=== PATIENT | male | born 2000 | race Caucasian/White ===

== ENCOUNTER 2024-08-02 23:35 | Emergency (ER) | payer BC, SELFPAY ==
[2024-08-02 23:40] VITALS: BP 148/92
[2024-08-03] MEDS: NSS 1000 IV (00:30)
[2024-08-03 00:36] LABS: % Basophils 0.5 % (0-2); % Eosinophils 0.8 % (0-6); % Immature Granulocytes 0.7 % (0-0.5); % Lymphocytes 30.4 % (20.5-51.1); % Monocytes 6.3 % (1.7-9.3); % Neutrophils 61.3 % (42.2-75.2); Absolute Basophils 0.1 10^3/uL (0-0.2); Absolute Eosinophils 0.1 10^3/uL (0-0.7); Absolute Immature Granulocytes 0.1 10^3/uL (0-0.05); Absolute Lymphocytes 3.6 10^3/uL (1.2-3.4); Absolute Monocytes 0.8 10^3/uL (0.1-0.6); Absolute Neutrophils 7.3 10^3/uL (1.4-6.5); Hematocrit 39.7 % (39.0-52.0); Mean Corp Hgb Conc. 35.3 g/dL (33.0-37.0); Mean Corpuscular Hgb 27.9 pg (27.0-31.0); Mean Corpuscular Volume 79.1 fL (80.0-94.0); Mean Platelet Volume 8.9 fL (7.4-10.4); Nucleated Red Blood Cells % 0 % (-); Platelet Count 310 10^3/uL (130-400); Red Blood Cell Count 5.02 10^6/uL (4.70-6.10); Red Cell Dist. Width 11.9 % (11.5-14.5); White Blood Cell Count 11.9 10^3/uL (4.8-10.8)
[2024-08-03 00:49] LABS: ALT (SGPT) 42 U/L (0-50); AST (SGOT) 29 U/L (17-59); Albumin 4.6 g/dl (3.5-5.0); Alkaline Phosphatase 86 U/L (38-126); Blood Urea Nitrogen 15 mg/dl (9-20); Calcium 9.3 mg/dl (8.4-10.2); Carbon Dioxide 24 mmol/L (22-30); Chloride 103 mmol/L (98-107); D-Dimer 0.32 ug/mlFEU (0.00-0.50); Glucose 148 mg/dl (70-99); Magnesium 1.8 mg/dl (1.6-2.3); Potassium 3.1 mmol/L (3.5-5.1); Sodium 143 mmol/L (135-145); Total Bilirubin 0.3 mg/dl (0.2-1.3); Total Protein 7.4 g/dl (6.3-8.2); eGFR > 60.00
[2024-08-03 01:00] VITALS: BP 139/85
[2024-08-03 01:01] LABS: Troponin I < 0.012 ng/ml
[2024-08-03 02:18] VITALS: BP 113/69
[2024-08-03 03:00] VITALS: BP 116/72
[2024-08-03 04:00] VITALS: BP 123/88
--- NOTE | 2024-08-03 04:31 | ED.GENMED ---
History of Present Illness
General
Chief Complaint: Chest Problem
Source: patient
Exam Limitations: none
Time Seen by Provider: 08/02/24 23:54
History of Present Illness
History of Present Illness:
24-year-old male who presents with feeling chest tightness like his heart is racing. He just finished the course of treatment for pneumonia. Patient does have history of mild asthma. Patient states he has had no further fevers and his cough is
improved. No hemoptysis. No leg pain or swelling.
Past History
Past History
ED Past Medical History: Asthma
ED Past Surgical History: Orthopedic
Phy Exam
Physical Exam
Physical Exam:
CONSTITUTIONAL Patient alert and oriented to person, place and time. Well-appearing. Vital signs reviewed.
HEAD atraumatic, normocephalic.
EYES eyelids normal to inspection, Pupils equally round and reactive to light, Extraocular muscles intact, Conjunctiva normal, Sclera normal.
NECK normal range of motion, Trachea midline, no jugular venous distention.
RESPIRATORY CHEST No respiratory distress noted, Chest expansion equal, Bilateral breath sounds clear.
CARDIOVASCULAR regular and tachycardic.
ABDOMEN abdomen nontender, Bowel sounds normal. No distention.
BACK normal inspection, no obvious deformities
UPPER EXTREMITY range of motion normal, Motor strength normal, no cyanosis, no edema.
LOWER EXTREMITY range of motion normal, Motor strength normal, no cyanosis, no edema.
NEURO Speech normal, No focal motor deficits, Elier coma scale 15, Memory normal, Cranial Nerves intact to screening exam.
SKIN skin warm, dry, and normal in color.
Course
Orders/Labs/Results
Orders:
Orders
08/02/24 23:38
ECG [Electrocardiogram (*1)] Urgent
Reason for Study: Chest Pain
Cardiology Consult: Unknown
EKG- Treatment ONCE
08/03/24 00:18
ECG [Electrocardiogram (*1)] Urgent
Reason for Study: Tachycardia
EKG- Treatment ONCE
08/03/24 00:21
0.9% Sodium Chloride 1000 ml [Nss] 1,000 ml IV BOLUS
08/03/24 00:28
Complete Blood Count/With Diff Urgent
Comprehensive Metabolic Panel Urgent
D-Dimer Urgent
Magnesium Urgent
Troponin I Urgent
08/03/24 01:41
CR Chest - 2 Views Urgent
Comment:
Reason For Exam: chest pain
08/03/24 04:09
Electrocardiogram (*1) Urgent
Reason for Study: Palpitations
EKG- Treatment ONCE
Abnormal Lab Results
08/03/24
00:28
WBC 11.9 H 10^3/uL
(4.8-10.8)
MCV 79.1 L fL
(80.0-94.0)
Abs Immat Gran (auto) 0.1 H 10^3/uL
(0-0.05)
Absolute Neuts (auto) 7.3 H 10^3/uL
(1.4-6.5)
Absolute Lymphs (auto) 3.6 H 10^3/uL
(1.2-3.4)
Absolute Monos (auto) 0.8 H 10^3/uL
(0.1-0.6)
Immature Gran % 0.7 H %
(0-0.5)
Potassium 3.1 L mmol/L
(3.5-5.1)
Glucose 148 H mg/dl
(70-99)
08/03/24 00:28
08/03/24 00:28
Vital Signs
Initial and Last Documented VS:
Initial Vital Signs
Temp Pulse Resp BP Pulse Ox
98.5 F 110 24 148/92 97
08/02/24 23:40 08/02/24 23:40 08/02/24 23:40 08/02/24 23:40 08/02/24 23:40
Last Documented Vital Signs
Temp Pulse Resp BP Pulse Ox
98.5 F 101 24 123/88 96
08/02/24 23:40 08/03/24 04:15 08/03/24 04:15 08/03/24 04:00 08/03/24 04:15
MDM/Problems Addressed
MDM/Problems Addressed:
Atrial tachycardia, hypokalemia
*Radiology
Radiology exam reviewed: preliminary read by ED provider and all reviewed NAD by ED Provider
*Pulse Oximetry
Patient hypoxic: no
*EKG
Interpreted by ED Provider?: Yes
Interpretation: abnormal
Rate: tachycardiac
Rhythm: sinus
Ischemia: non-specific ST changes
*Early Breastfeeding Care Specialist Interpretation
Rate: tachycardiac
Interpretation: abnormal
Rhythm: sinus
*Critical Care Note
Total Time (30-74mins, 75-104mins- exclusive of procedures): Not Applicable
Data Reviewed
Source: patient and significant other
Prescriptions/Medications Considered But Not Given:
Consider AV blockers but heart rate much improved
Patient Management
Escalation/DeEscalation of care consider admission/obs:
24-year-old male chest tightness his heart racing. Do not suspect ischemia but patient's heart rate did jump into the 140s. I do suspect he has an atrial tachycardia as it did resolve relatively quickly without major intervention. May need
outpatient follow-up with cardiology and Holter monitor. Patient is a rate was very high as of pneumonia. Replace potassium. Okay for discharge. D-dimer negative.
ED Attending Note
-
Portions of this chart may have been created with voice recognition software.� Occasional wrong word or��sound alike� substitutions may have occurred due to the inherent limitations of voice recognition software.
Discharge Plan
Departure
Patient Disposition: Home (Routine Discharge)
Date of Disposition: 08/03/24
Time of Disposition: 04:36
Patient with high blood pressure during this ER visit?: No
Discharge Problem:
Atrial tachycardia
Instructions: Palpitations
Referrals:
UNKNOWN - PT DOES,NOT KNOW [Family Provider] -
Activity Restrictions/Additional Instructions:
Please see your doctor in the next 2 days for follow-up and reevaluation. Further workup with a Holter monitor may be necessary. Please drink plenty of fluids and maintain proper hydration. Return immediately for chest pain, shortness of breath,
palpitations, weakness of any kind or any other concerns.
Interventions
Interventions:
*Risk Screen - Suicide Last Done: 08/02/24 23:38
*General Assessment Last Done: 08/02/24 23:49
*Neglect/Abuse Screening Last Done: 08/02/24 23:40
ED- Fall Risk Assessment Last Done: 08/02/24 23:49
*ED COVID-19 Vaccine History Last Done: 08/02/24 23:40
ED- Cardiac Assessment Last Done: 08/03/24 00:57
ED- Pulmonary Assessment Last Done: 08/03/24 00:57
Discharge Date and Time
Print Language: [place]
[2024-08-03] MEDS: KCL ELIXIR 40 MEQ PO (04:41)
== END 2024-08-03 04:50 | disposition home or self-care (01) ==
LOC: EMR 23:35
PROVIDERS: EMERGENCY PHYSICIAN Emergency Medicine
DX: I47.19 Other supraventricular tachycardia (principal)
CPT/HCPCS: 99285; 96360; 71046; 80053; 83735; 84484; 85025; 85379; 93005